=== PATIENT | male | born 1965 | race American Indian/Alaskan Native ===

== ENCOUNTER 2018-05-06 09:29 | Emergency (ER) | payer OTHER ==
[2018-05-06 10:04] LABS: Basophils % (Auto) 0.5 % (0.0-1.8); Eosinophils % (Auto) 0.2 % (0.0-4.3); Hematocrit 44.3 % (35.5-45.6); Lymphocytes # (Auto) 1.7 K/mm3 (1.2-5.4); Lymphocytes % (Auto) 20.9 % (13.4-35.0); Mean Corpuscular HGB Conc 32 % (32-34); Monocytes # (Auto) 0.5 K/mm3 (0.0-0.8); Monocytes % (Auto) 6.6 % (0.0-7.3); Platelet Count 184 K/mm3 (140-440); Red Blood Count 6.42 M/mm3 (3.65-5.03); Red Cell Distribution Width 15.1 % (13.2-15.2)
[2018-05-06 10:05] LABS: Mean Corpuscular Volume 69 fl (84-94)
[2018-05-06 10:16] LABS: BUN/Creatinine Ratio 11; Blood Urea Nitrogen 10 mg/dL (9-20); Calcium 9.8 mg/dL (8.4-10.2); Hemolysis Index 11
--- NOTE | 2018-05-06 12:03 | Emergency Department Report ---
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 Apparently he was outside of a [employer] with what the stationary fireman describes as a "passive scene". The patient tells me he had a recent test which showed "a virus that I can't get rid of". He was apparently distraught about this. He did not provide me with a lot of additional information other than that he admitted that he had suicidal ideation earlier this am. I spoke with the mental health counselor. Additional information was available. She stated that the patient had locked himself in his truck with a loaded weapon. He was having suicidal ideation. Therefore, the patient clearly meets criteria for a 1013 confinement. This was executed. He will be sent for psychiatric evaluation/stabilization. 05/06/18 15:05 Complaint: suicidal ideation -: days(s) Associated Psychiatric Symptoms: depression, suicidal ideation History of same: No Quality: intermittent Improves With: none Worsens With: none Context: significant life stressor, other (see HPI) Associated Symptoms: denies other symptoms (patient is not admitting to depression at the moment but appears to be depressed) Treatments Prior to Arrival: none If Self Harm: admits thoughts of - Related Data Allergies Allergy/AdvReac Type Severity Reaction Status Date / Time Sulfa (Sulfonamide Allergy Rash Verified 05/06/18 09:37 Antibiotics) ED Review of Systems ROS: Stated complaint: EVALUATION Other details as noted in HPI Constitutional: denies: chills, fever Eyes: denies: eye pain, eye discharge, vision change ENT: denies: ear pain, throat pain Respiratory: denies: cough, shortness of breath, wheezing Cardiovascular: denies: chest pain, palpitations Endocrine: no symptoms reported Gastrointestinal: denies: abdominal pain, nausea, diarrhea Genitourinary: denies: urgency, dysuria Musculoskeletal: denies: back pain, joint swelling, arthralgia Skin: denies: rash, lesions Neurological: denies: headache, weakness, paresthesias Psychiatric: as per HPI Hematological/Lymphatic: denies: easy bleeding, easy bruising ED Past Medical Hx - Past Medical History Hx Hypertension: Yes Additional medical history: Herpes - Surgical History Past Surgical History?: No - Social History Smoking Status: Never Smoker Substance Use Type: None ED Physical Exam - General Limitations: No Limitations General appearance: alert, in no apparent distress - Head Head exam: Present: atraumatic, normocephalic - Eye Eye exam: Present: normal appearance. Absent: scleral icterus - ENT ENT exam: Present: mucous membranes moist - Neck Neck exam: Present: normal inspection - Respiratory Respiratory exam: Present: normal lung sounds bilaterally. Absent: respiratory distress - Cardiovascular Cardiovascular Exam: Present: regular rate, normal rhythm. Absent: systolic murmur, diastolic murmur, rubs, gallop - GI/Abdominal GI/Abdominal exam: Present: soft, normal bowel sounds. Absent: distended, tenderness, guarding, rebound, rigid - Rectal Rectal exam: Present: deferred - Extremities Exam Extremities exam: Present: normal inspection - Back Exam Back exam: Present: normal inspection - Neurological Exam Neurological exam: Present: alert, oriented X3, CN II-XII intact. Absent: motor sensory deficit - Psychiatric Psychiatric exam: Present: flat affect. Absent: agitated (appears a bit angry but not overtly agitated) - Skin Skin exam: Present: warm, dry, intact, normal color. Absent: rash ED Course Vital Signs 05/06/18 09:34 Pulse Rate 73 Respiratory 16 Rate Blood Pressure 142/93 O2 Sat by Pulse 99 Oximetry - Reevaluation(s) Reevaluation #1: 1013. The patient is medically cleared for psychiatric evaluation. 05/06/18 15:08 ED Medical Decision Making - Lab Data Result diagrams: 05/06/18 09:50 05/06/18 09:50 Laboratory Results - last 24 hr 05/06/18 05/06/18 05/06/18 09:50 09:50 09:50 WBC RBC Hgb Hct MCV MCH MCHC RDW Plt Count Lymph % (Auto) [place] % (Auto) Eos % (Auto) Baso % (Auto) Lymph # [place]et # Eos # Baso # Seg Neutrophils % Seg Neutrophils # Sodium 141 Potassium 4.7 Chloride 101.7 Carbon Dioxide 28 Anion Gap 16 BUN 10 Creatinine 0.9 Estimated GFR > 60 BUN/Creatinine Ratio 11 Glucose 123 H Calcium 9.8 Salicylates < 0.3 L Acetaminophen < 5.0 L Plasma/Serum Alcohol 05/06/18 05/06/18 09:50 09:50 WBC 8.3 RBC 6.42 H Hgb 14.0 Hct 44.3 MCV 69 L MCH 22 L MCHC 32 RDW 15.1 Plt Count 184 Lymph % (Auto) 20.9 [place]et % (Auto) 6.6 Eos % (Auto) 0.2 Baso % (Auto) 0.5 Lymph # 1.7 Burnet # 0.5 Eos # 0.0 Baso # 0.0 Seg Neutrophils % 71.8 H Seg Neutrophils # 6.0 Sodium Potassium Chloride Carbon Dioxide Anion Gap BUN Creatinine Estimated GFR BUN/Creatinine Ratio Glucose Calcium Salicylates Acetaminophen Plasma/Serum Alcohol < 0.01 Critical care attestation.: If time is entered above; I have spent that time in minutes in the direct care of this critically ill patient, excluding procedure time. ED Disposition Clinical Impression: Suicidal ideation Depression Qualifiers: Depression Type: unspecified Qualified Code(s): F32.9 - Major depressive disorder, single episode, unspecified Disposition: [id number]/[id number] PSY HOSP/PSY UNIT Is pt being admited?: No Does the pt Need Aspirin: No Condition: Stable Referrals: SIDNEY PAIGE [Primary Care Provider] - 3-5 Days Time of Disposition: 15:09
[2018-05-06] MEDS ORDERED: ALUM-MAG HYDROX-SIMETH 200-200-20MG/5ML PO PRN (15:09)
[2018-05-06] MEDS ORDERED: MILK OF MAGNESIA PO PRN (15:09)
[2018-05-06] MEDS ORDERED: TYLENOL PO PRN (15:09)
[2018-05-06 16:09] LABS: Bilirubin,Urine NEG (Negative); Blood,Urine NEG (Negative); Color,Urine Straw (Yellow); Mucus,Urine FEW /HPF; Protein,Urine <15 mg/dL mg/dL (Negative); RBC,Urine < 1.0 /HPF (0.0-6.0); Urobilinogen,Urine < 2.0 mg/dL (<2.0); WBC,Urine < 1.0 /HPF (0.0-6.0)
[2018-05-06 16:19] LABS: Amphetamine Screen,Urine PRESUMPTIVE NEGATIVE; Benzodiazepines Screen,Urine PRESUMPTIVE NEGATIVE; Cannabinoid Screen,Urine PRESUMPTIVE NEGATIVE; Cocaine Screen,Urine PRESUMPTIVE NEGATIVE; Methadone Screen,Urine PRESUMPTIVE NEGATIVE; Opiate Screen,Urine PRESUMPTIVE NEGATIVE
[2018-05-06] MEDS ORDERED: IBUPROFEN PO ONE ×3 (19:09→22:37)
[2018-05-06] MEDS ORDERED: IBUPROFEN ONE (22:24)
[2018-05-06 22:46] VITALS: BP 122/74
== END 2018-05-06 22:40 ==
LOC: EEVIPCON 09:29 → ED 09:29
DX: F32.9 Major depressive disorder, single episode, unspecified (principal); I10 Essential (primary) hypertension; Z88.2 Allergy status to sulfonamides
CPT/HCPCS: 36415; 80048; 80307; 81001; 85025; 99285; G0480; 80320